=== PATIENT | female | born 1970 | race Caucasian/White ===

== ENCOUNTER 2020-01-26 15:17 | Emergency (ER) | payer BC, OTHER ==
[~2020-01-26] VITALS: Ht 162.6 cm; Wt 70.3 kg
[2020-01-26 15:58] LABS: URINE BILIRUBIN 1+ (Negative); URINE BLOOD NEGATIVE (Negative); URINE CLARITY CLEAR; URINE COLOR YELLOW; URINE GLUCOSE-RANDOM* NEGATIVE (Negative); URINE KETONES TRACE (Negative); URINE LEUKOCYTES-REFLEX NEGATIVE (Negative); URINE NITRITE-REFLEX NEGATIVE (Negative); URINE PROTEIN (DIPSTICK) NEGATIVE (Negative); URINE SPECIFIC GRAVITY 1.025 (1.005-1.035)
[2020-01-26 15:59] LABS: ICTOTEST (BILI CONFIRMATORY) Negative (Negative)
[2020-01-26 17:26] LABS: BASOPHILS 0.6 % (0.0-2.0); HEMOGLOBIN 15.4 gm/dL (12.0-15.0); RDW 13.3 % (10.5-14.5)
[2020-01-26 17:28] LABS: ABSOLUTE NEUTROPHILS 6.5 thou/uL (1.4-8.2); EOSINOPHILS 0.5 % (0.0-3.0); HEMATOCRIT 44.4 % (37.0-47.0); LYMPHOCYTES 17.8 % (24.0-44.0); MCH 31.3 pg (26.0-34.0); MCHC 34.8 g/dL (28.0-37.0); MCV 89.9 fL (80.0-100.0); PLATELET COUNT 310 thou/uL (150-400); POLYS 74.1 % (36.0-66.0); RBC 4.93 mil/uL (4.20-5.00); WBC 8.8 thou/uL (4.0-11.0)
[2020-01-26 17:37] LABS: CREATININE 0.9 mg/dL (0.6-1.0); POTASSIUM 3.7 mmol/L (3.5-5.1)
[2020-01-26 17:43] LABS: ALBUMIN 3.8 g/dL (3.4-5.0); TOTAL BILIRUBIN 0.6 mg/dL (<0.1-1.0); TOTAL PROTEIN 7.5 g/dL (6.4-8.2)
[2020-01-26 20:15] VITALS: BP 127/59
[2020-01-26] MEDS ORDERED: ZOFRAN ODT4 MG PO (20:15)
== END 2020-01-26 20:32 | disposition home or self-care (01) ==
LOC: ER 15:17
PROVIDERS: Nurse Practitioner Family
DX: D25.9 Leiomyoma of uterus, unspecified (principal); R19.7 Diarrhea, unspecified; R10.31 Right lower quadrant pain; R10.33 Periumbilical pain; R11.0 Nausea